=== PATIENT | female | born 1945 | race Caucasian/White ===

== ENCOUNTER 2016-12-08 23:03 | Emergency (ER) | payer OTHER ==
[~2016-12-08] VITALS: Ht 170.2 cm; Wt 81.6 kg
[~2016-12-08 23:03] MED LIST: ALBUTEROL0.09 MG/A1 INH; PREDNISONE 20MG20 MG PO
--- NOTE | 2016-12-08 23:52 | ED GENERAL ADULT ---
History of Present Illness General Chief Complaint: General Adult Stated Complaint: HIP PAIN HIGH B/P Source: patient Exam Limitations: no limitations Allergies Coded Allergies: NO KNOWN ALLERGIES (12/08/16) Triage Note: TRIAGE: PT TO ER WITH DAUGHTER C/C HIGH BLOOD PRESSURE AND L HIP PAIN. STATES HER GRANDCHILD ACCIDENTALLY PULLED THE STRING IN THE BATHROOM BRING EMS TO HER HOME FOR ASSISTANCE THAT SHE DID NOT NEED. STATES THEY CHECKED HER BLOOD PRESSURE AND FOUND HER TO BE HYPERTENSIVE WITH 190/110 AND LATER 160/110. PT AUTO B/P 208/110. B/P 180/98 MANUAL. STATES HAS HAD L HIP PAIN X COUPLE WEEKS AND SINCE SHE WAS COMING IN THOUGHT SHE WOULD GET IT CHECKED OUT. NO KNOWN INJURY. Triage Nurses Notes Reviewed? yes Onset: Abrupt Duration: week(s): (2), constant, continues in ED Timing: recent history Injury Environment: home No Modifying Factors: none HPI: 71-year-old female comes into emergency room with complaints of right hip pain. Patient reports his been going on for the past 2 weeks. Denies any falls or trauma. Patient reports that tonight in her bathroom she accidentally pulled the emergency string in the ambulance came. Patient reports that she was completely fine and was having no symptoms and this was an accident. They took her vitals and her blood pressure was elevated they recommended that she come to the hospital for further evaluation. Patient denies any chest pain shortness of breath vomiting diaphoresis headaches. Patient has a history of high blood pressure but has not been taking her amlodipine because she ran out. Patient reports that while she is here she would like an evaluation for her right hip pain. (OTONIEL ESPAÑA,CARLA) Vital Signs & Intake/Output Vital Signs & Intake/Output ED Intake and Output 12/10 0000 12/09 1200 Intake Total 240 Output Total Balance 240 Intake, Oral 240 Reconcile Medications Albuterol Sulfate (Albuterol Sulfate Hfa) 90 MCG HFA.AER.AD 2 PUFF INH Q4-6 PRN PRN SHORTNESS OF BREATH 90 MCG PER PUFF Amlodipine Besylate 5 MG TABLET 1 TAB PO DAILY HTN Prednisone 20 MG TABLET 1 TAB PO DAILY COUGH Tramadol HCl 50 MG TABLET 1 TAB PO BIDP PRN pain (MARIS ARAGON,JHOAN Madera) Past History Travel History Traveled to [place] past 21 day No Medical History Any Pertinent Medical History? 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 No (CARLA LEACH) Review of Systems Review of Systems Constitutional: Reports: no symptoms. EENTM: Reports: no symptoms. Respiratory: Reports: no symptoms. Cardiovascular: Reports: no symptoms. GI: Reports: no symptoms. Genitourinary: Reports: no symptoms. Musculoskeletal: Reports: see HPI. Skin: Reports: no symptoms. Neurological/Psychological: Reports: no symptoms. Hematologic/Endocrine: Reports: no symptoms. Immunologic/Allergic: Reports: no symptoms. All Other Systems: Reviewed and Negative (CARLA LEACH) Physical Exam Physical Exam General Appearance: well developed/nourished, no apparent distress, alert Head: atraumatic, normal appearance Eyes: Bilateral: normal appearance. Ears, Nose, Throat: normal ENT inspection, hearing grossly normal Neck: normal inspection Respiratory: normal breath sounds, no respiratory distress Cardiovascular: regular rate/rhythm Extremities: normal inspection, normal range of motion, TENDERNESS OVER RIGHT LATERAL HIP, FULL RANGE OF MOTION Neurologic/Psych: awake, alert, oriented x 3, normal gait, normal mood/affect Skin: intact, normal color (CARLA LEACH) Core Measures ACS in differential dx? No CVA/TIA Diagnosis: No Severe Sepsis Present: No Septic Shock Present: No (MARIS ARAGON,JHOAN [place]) Progress Differential Diagnoses I considered the following diagnoses in my evaluation of the patient: Arthritis , muscle strain, FL, CVA, hypertensive urgency, Plan of Care: Orders Procedure Date/time Status XRY-HIP 2-3 VIEWS, RIGHT 12/08 2351 Active Diagnostic Imaging: Viewed by Me: Radiology Read. Discussed w/RAD: Radiology Read. Initial ED EKG: none (CARLA LEACH) Radiology Impression: PATIENT: JUSTIN CARTAGENA PRESENT AGE: 71 PATIENT ACCOUNT NO: [id number] : 45 LOCATION: [facility] ORDERING PHYSICIAN: CARLA ESPAÑA SERVICE DATE: 12/08/16 EXAM TYPE : RAD - XRY-HIP 2-3 VIEWS, RIGHT EXAMINATION: XR HIP, RIGHT CLINICAL INFORMATION : Right hip pain COMPARISON: None TECHNIQUE: Two views of the right hip. FINDINGS: Alignment across the hip is anatomic. No acute fracture is seen. The joint space is relatively well-preserved. There is moderate osteophyte formation of the acetabulum. No acute fracture is seen. IMPRESSION: No acute findings identified. Moderate acetabular spurring. DICTATED BY: HARPREET BRIGHT MD DATE/ TIME DICTATED:12/09/16116 ELECTRICIAN OUTSIDE:EDU DATE/TIME TRANSCRIBED: 12/09/16116 CONFIDENTIAL, DO NOT COPY WITHOUT APPROPRIATE AUTHORIZATION. < Electronically signed in Other Vendor System> SIGNED BY: HARPREET BRIGHT MD 12/09/16 0123 (MARIS ARAGON,JHOAN Mad[place]) Departure Departure Disposition: HOME OR SELF CARE Condition: Stable Clinical Impression Primary Impression: Hypertension Secondary Impressions: Right hip pain Referrals: VENU ARAGON,MANDO Haider (PCP/Family) ELSIE GUZMAN MD Additional Instructions: Take Tylenol as needed for pain. Take tramadol as needed for pain. Take amlodipine as prescribed. Follow-up with your primary care doctor to have your blood pressure rechecked. Return to the emergency room if any chest pain shortness of breath headache or any other concerns. Please go over all results of today's visit with your primary care doctor. Contact your primary care doctor to let them know you were here in the emergency room. There may be nonspecific findings which may not be related to your visit today here in the emergency room but may require further evaluation and chronic monitoring by your primary care doctor. If you had a laceration today the chance of foreign body always remains. You should follow-up with your primary care doctor for recheck in 3-5 days for a wound check. If you had an x-ray done there is a chance that a fracture could have been missed on initial read and you should follow-up with your primary care doctor for repeat x-rays if symptoms persist. If your blood pressure was elevated here in the emergency room please have rechecked by her primary care doctor within the next 48 hours by your primary care doctor. If you were prescribed a narcotic here in the emergency room or any type of controlled substances you're not allowed to drive while taking this medication or operate any type of heavy machinery. Narcotics can make you feel lightheaded dizziness nausea and can cause constipation. You may need to bead picker a stool softener. Thank you for choosing [facility] emergency room. Please return to the emergency room immediately if you have any other concerns worsening of symptoms. Departure Forms: Customer Survey General Discharge Information Prescriptions: Current Visit Scripts Amlodipine Besylate 1 TAB PO DAILY #30 TAB Tramadol HCl 1 TAB PO BIDP PRN pain #15 TAB (CARLA LEACH) PA/WIRELESS RETAIL MANAGER Co-Sign Statement Statement: ED Attending supervision documentation- [X] I saw and evaluated the patient. I have also reviewed all the pertinent lab results and diagnostic results. I agree with the findings and the plan of care as documented in the PA's/WIRELESS RETAIL MANAGER's documentation. [X] I have reviewed the ED Record and agree with the PA's/WIRELESS RETAIL MANAGER's documentation. [] Additions or exceptions (if any) to the PAs/WIRELESS RETAIL MANAGER's note and plan are summarized below: [] (JHOAN POLLOCK MD) Critical Care Note Critical Care Note Critical Care Time: non-applicable (JHOAN POLLOCK MD) ED Attending supervision documentation- [X] I saw and evaluated the patient. I have also reviewed all the pertinent lab results and diagnostic results. I agree with the findings and the plan of care as documented in the PA's/WIRELESS RETAIL MANAGER's documentation. [X] I have reviewed the ED Record and agree with the PA's/WIRELESS RETAIL MANAGER's documentation. [] Additions or exceptions (if any) to the PAs/WIRELESS RETAIL MANAGER's note and plan are summarized below: [] (JHOAN POLLOCK MD) Critical Care Note Critical Care Note Critical Care Time: non-applicable (JHOAN POLLOCK MD)
[2016-12-09] MEDS ORDERED: AMLODIPINE BESYL5 M1 PO (00:10)
[2016-12-09 00:52] VITALS: BP 136/78
[2016-12-09] MEDS ORDERED: TRAMADOL HCL50 M1 PO (00:58)
--- NOTE | 2016-12-09 01:23 | RADIOLOGY REPORT ---
EXAMINATION: XR HIP, RIGHT CLINICAL INFORMATION: Right hip pain COMPARISON: None TECHNIQUE: Two views of the right hip. FINDINGS: Alignment across the hip is anatomic. No acute fracture is seen. The joint space is relatively well-preserved. There is moderate osteophyte formation of the acetabulum. No acute fracture is seen. IMPRESSION: No acute findings identified. Moderate acetabular spurring.
== END 2016-12-09 01:50 ==
LOC: ERH 23:03
DX: I10 Essential (primary) hypertension (principal); M25.551 Pain in right hip
CPT/HCPCS: 73502-RT